=== PATIENT | male | born 1950 | race Caucasian/White ===

== ENCOUNTER 2021-08-12 12:27 | Outpatient (CLI) | payer MEDICARE, OTHER ==
[~2021-08-12 12:27] MED LIST: CYCLOBENZAPRINE10 MG PO
[2021-08-12 13:15] VITALS: BP 110/71; PULSE 72; TEMP 98.1
[2021-08-12 13:30] VITALS: BP 140/76; PULSE 75; TEMP 98.1
[2021-08-12 13:45] VITALS: BP 128/73; PULSE 75; TEMP 98.1
[2021-08-12] MEDS ORDERED: LIPITOR 10MG10 MG PO (13:47)
[2021-08-12] MEDS ORDERED: PROSCAR 5MG5 MG PO (13:48)
[2021-08-12] MEDS ORDERED: BENICAR 20MG TA20 MG PO (13:49)
[2021-08-12] MEDS ORDERED: NORVASC 10MG10 MG PO (13:50)
[2021-08-12 14:00] VITALS: BP 138/82; PULSE 72; TEMP 98.1
[2021-08-12 14:15] VITALS: BP 140/72; PULSE 72; TEMP 98.1
[2021-08-12 14:30] VITALS: BP 141/76; PULSE 68; TEMP 98.1
== END 2021-08-12 14:40 | disposition home or self-care (01) ==
LOC: EUO 12:27
DX: U07.1 COVID-19 (principal); I25.10 Atherosclerotic heart disease of native coronary artery without angina pectoris
CPT/HCPCS: M0247; Q0247